=== PATIENT | female | born 1965 | race Caucasian/White ===

== ENCOUNTER 2020-05-08 09:15 | Emergency (ER) | payer OTHER ==
[2020-05-08] MEDS ORDERED: Acetaminophen 500 MG Tab PO ONE (09:57)
[2020-05-08] MEDS ORDERED: oxyCODONE 5 MG Tab PO ONE (09:57)
--- NOTE | 2020-05-08 09:59 | EDM.PDOC ---
ED HPI GENERAL MEDICAL PROBLEM - General Chief Complaint: General Stated Complaint: ARTHRITIS PAIN Time Seen by Provider: 05/08/20 09:57 Source of Information: Reports: Patient, Old Records History Limitations: Reports: No Limitations - History of Present Illness INITIAL COMMENTS - FREE TEXT/NARRATIVE: This is a very pleasant 54-year-old female with a past medical history of ost eoarthritis and lone atrial fibrillation not on anticoagulation presenting with hip pain and hand pain. She reports a 3-day history of pain to various small joints of her bilateral hands and her bilateral hips. She states that she has been diagnosed with osteoarthritis and that this pain seems to be a flare of her known OA. No new locations of pain today. Denies any redness or fever. No history of rheumatoid arthritis or any autoimmune disease. She is not on any steroids or immunosuppressant medications. No history of any new trauma. No history of prior joint replacements in the affected areas. Past medical history: Reviewed, no additional pertinent history. Surgical history: Reviewed in system, no additional pertinent history. Social history: Reviewed in system, no additional pertinent history. Family history: Reviewed in system, no additional pertinent history. PHYSICAL EXAM Vital signs reviewed. Nursing notes reviewed. Constitutional: Awake, alert, uncomfortable appearing. Head: Normocephalic, atraumatic. Eyes: EOMI, conjunctiva normal, no discharge, no scleral icterus. Ears, Nose, Throat: External ears and nose normal, moist oral mucosa. Cardiovascular: 2+ bilateral DP pulses, capillary refill less than 2 seconds. Bilateral lower extremities are warm and well-perfused. Pulmonary: normal work of breathing, no accessory muscle use. Abdomen/GI: Soft, nontender, nondistended, no guarding or rigidity, no masses. Musculoskeletal: No deformities. Various interphalangeal and metacarpal phalangeal joints of both hands are slightly tender but are not overtly erythematous or swollen to suggest septic arthritis. No joint effusions appreciated the bilateral hands and the fingers of both hands. Moderate pain with active and passive movement of both hip joints but there are no overlying skin changes such as erythema and there is no gross joint effusion to either hip. Integumentary: Appropriate color for ethnicity, warm, dry, no pallor or jaundice, no rash. Neurologic: Alert, answering questions appropriately, normal speech, no facial droop, moving all extremities well. Psychiatric: Appropriate mood and affect, normal thought process. general Pain Score (Numeric/FACES): 9 - Related Data Allergies Allergy/AdvReac Type Severity Reaction Status Date / Time cyclobenzaprine Allergy Seizure Verified 05/08/20 09:33 [From Flexeril] NSAIDS (Non-Steroidal Allergy Hives Verified 05/08/20 09:33 Anti-Inflamma prednisone Allergy Hives Verified 05/08/20 09:33 Home Meds: Home Meds Acetaminophen [Acetaminophen Extra Strength] 500 - 1,000 mg PO Q6H PRN #30 table t 05/08/20 [Rx] traMADol [Ultram] 50 mg PO Q4H PRN #15 tab 05/08/20 [Rx] Past Medical History HEENT History: Reports: Impaired Vision Respiratory History: Reports: Asthma Genitourinary History: Reports: Renal Calculus Musculoskeletal History: Reports: Arthritis Psychiatric History: Reports: Anxiety, PTSD - Infectious Disease History Infectious Disease History: Reports: Chicken Pox - Past Surgical History GI Surgical History: Reports: Appendectomy, Cholecystectomy, Hernia Repair/Other Female Surgical History: Reports: Hysterectomy Other Musculoskeletal Surgeries/Procedures:: discectomy Social & Family History - Tobacco Use Tobacco Use Status *Q: Current Every Day Tobacco User Years of Tobacco use: 15 Packs/Tins Daily: 0.7 - Recreational Drug Use Recreational Drug Use: No ED ROS GENERAL - Review of Systems Review Of Systems: See Below ED EXAM, GENERAL - Physical Exam Exam: See Below Course - Vital Signs Text/Narrative:: 54-year-old female presenting with acute worsening of her chronic arthritis of the hands and hips. No evidence of overlying erythema, induration, or warmth to suggest septic arthritis or an infectious process. No history of autoimmune disease. I believe that this is worsening of her chronic osteoarthritis. Given oxycodone and Tylenol for pain along with some some lidocaine patches. Given that pain is in her typical locations of her OA, I do not feel like need to repeat x-rays today. We will plan to discharge home with a short course of tramadol until she can get in with her primary doctor as it is currently the weekend. Recommended acetaminophen and [id number] lidocaine patches, heating pad, stretching, etc. 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 She voiced understanding and had no questions. Plan: Patient is stable to discharge home with outpatient primary care clinic follow-up. Strict emergency department return precautions were provided, patient indicated understanding. All questions were answered prior to departure. Discharged in good condition. Last Recorded V/S: Last Vital Signs Temp 36.3 C 05/08/20 10:30 Pulse 98 05/08/20 10:30 Resp 20 05/08/20 10:30 BP 146/56 H 05/08/20 10:30 Pulse Ox 97 05/08/20 10:30 - Orders/Labs/Meds Orders: Medication Orders Lidocaine (Lidoderm 5%) 700 mg TOP ONETIME ONE Stop: 05/08/20 10:34 Lidocaine (Lidoderm 5%) 700 mg TOP ONETIME ONE Stop: 05/08/20 10:34 Meds: Medications Generic Name Dose Route Start Last Admin Trade Name Freq PRN Reason Stop Dose Admin Lidocaine 700 mg 05/08/20 10:33 Lidoderm 5% TOP 05/08/20 10:34 ONETIME ONE Lidocaine 700 mg 05/08/20 10:33 Lidoderm 5% TOP 05/08/20 10:34 ONETIME ONE Discontinued Medications Generic Name Dose Route Start Last Admin Trade Name Freq PRN Reason Stop Dose Admin Acetaminophen 1,000 mg 05/08/20 09:57 05/08/20 10:31 Tylenol Extra Strength PO 05/08/20 09:58 1,000 mg ONETIME ONE Administration Oxycodone HCl 10 mg 05/08/20 09:57 05/08/20 10:31 Oxycodone PO 05/08/20 09:58 10 mg ONETIME ONE Administration Departure - Departure Time of Disposition: 10:36 Disposition: Home, Self-Care 01 Condition: Good Clinical Impression: Osteoarthritis, hip, bilateral Qualifiers: Osteoarthritis type: unspecified Qualified Code(s): M16.0 - Bilateral primary osteoarthritis of hip Osteoarthritis of both hands Qualifiers: Osteoarthritis type: unspecified Qualified Code(s): M19.041 - Primary osteoarthritis, right hand; M19.042 - Primary osteoarthritis, left hand - Discharge Information *PRESCRIPTION DRUG MONITORING PROGRAM REVIEWED*: Yes *COPY OF PRESCRIPTION DRUG MONITORING REPORT IN PATIENT DAVONTE: Not Applicable Instructions: Osteoarthritis, What You Need to Know About Osteoarthritis Referrals: Josemanuel Camarillo MD [Primary Care Provider] - 3 Days (For follow-up care of osteoarthritis.) Forms: ED Department Discharge Additional Instructions: It seems that the pain you are having today is due to worsening of your known osteoarthritis. I do not see any signs of infection or any new conditions today. We are going to prescribe a short course of tramadol until you can get into see your doctor next week. You can also take [id number] extra strength Tylenol and lidocaine patches and try heating pad and stretching. Please return the emergency department immediately if your symptoms worsen or if you feel worse. Thank you for choosing the [facility] emergency department in [place] for your medical needs today. It was a pleasure caring for you. The following information is given to patients seen in the emergency department who are being discharged. This information is to outline your options for follow-up care. We provide all patients seen in our emergency department with a follow-up referral. The need for follow-up, as well as the timing and circumstances, are variable depending upon the specifics of your emergency department visit. If you don't have a primary care physician on staff, we will provide you with a referral. We always advise you to contact your personal physician following an emergency department visit to inform them of the circumstance of the visit and for follow-up with them and/or the need for any referrals to a consulting specialist. The emergency department will also refer you to a specialist when appropriate. This referral assures that you have the opportunity for follow-up care with a sp ecialist. All of these measure are taken in an effort to provide you with optimal care, which includes your follow-up. Under all circumstances we always encourage you to contact your private physicia n who remains a resource for coordinating your care. When calling for follow-up care, please make the office aware that this follow-up is from your recent emergency room visit. If for any reason you are refused follow-up, please contact the [facility] Emergency Department at and asked to speak to the emergency department charge nurse. If you do not have a primary care physician that is caring for you, you can contact these clinics below to set up an appointment to establish care: [facility] - Primary Care [address], [place] [address] [facility] [address] [place] [id number] Sepsis Event Note (ED) - Evaluation Sepsis Screening Result: No Definite Risk - Focused Exam Vital Signs: Vital Signs Temp Pulse Resp BP Pulse Ox 05/08/20 10:30 36.3 C 98 20 146/56 H 97 05/08/20 09:29 36.2 C 97 17 143/65 H 95
[2020-05-08] MEDS ORDERED: Lidocaine 5% 700 MG Patch TOP ONE ×2 (10:33)
== END 2020-05-08 10:59 | disposition home or self-care (01) ==
LOC: MW.ED 09:15
DX: M16.0 Bilateral primary osteoarthritis of hip (principal); M19.042 Primary osteoarthritis, left hand; M19.041 Primary osteoarthritis, right hand; J45.909 Unspecified asthma, uncomplicated; I48.91 Unspecified atrial fibrillation; F17.210 Nicotine dependence, cigarettes, uncomplicated; Z88.8 Allergy status to other drugs, medicaments and biological substances; Z90.49 Acquired absence of other specified parts of digestive tract; Z90.710 Acquired absence of both cervix and uterus
CPT/HCPCS: 99283; A9270

== ENCOUNTER 2020-12-12 12:20 | Emergency (ER) | payer OTHER ==
--- NOTE | 2020-12-12 12:29 | EDM.PDOC ---
ED HPI GENERAL MEDICAL PROBLEM - General Chief Complaint: Back Pain or Injury Stated Complaint: BOTH LEGS PAINFUL AND NUMB Time Seen by Provider: 12/12/20 12:20 Source of Information: Reports: Patient History Limitations: Reports: No Limitations - History of Present Illness INITIAL COMMENTS - FREE TEXT/NARRATIVE: 54-year-old female past medical history chronic back pain status post discectomy status post neurostimulator placed and subsequently removed presents for low back pain. Patient states that she has chronic back pain and is typically able to get by with tramadol and Tylenol. She notes that she has been doing a lot of yard work over the weekend and that her back pain is not relieved with tramadol and Tylenol. Feels like her typical back pain but worse. Is in bilateral lower back radiating down bilateral lower legs left greater than right. She describes a shooting pain that is worse with movement. She does note some numbness and tingling primarily on the left side which is been there for years. She denies bowel or bladder incontinence, no dysuria or hematuria. No groin anesthesia. No muscle weakness. lower back Pain Score (Numeric/FACES): 8 - Related Data Allergies Allergy/AdvReac Type Severity Reaction Status Date / Time cyclobenzaprine Allergy Seizure Verified 12/12/20 12:31 [From Flexeril] NSAIDS (Non-Steroidal Allergy Hives Verified 12/12/20 12:31 Anti-Inflamma prednisone Allergy Hives Verified 12/12/20 12:31 Home Meds: Home Meds Acetaminophen [Acetaminophen Extra Strength] 500 - 1,000 mg PO Q6H PRN #30 tablet 05/08/20 [Rx] traMADol [Ultram] 50 mg PO Q4H PRN #15 tab 05/08/20 [Rx] LORazepam [Ativan] 0.5 mg PO BID PRN 12/12/20 [History] Past Medical History HEENT History: Reports: Impaired Vision Respiratory History: Reports: Asthma Genitourinary History: Reports: Renal Calculus Musculoskeletal History: Reports: Arthritis Psychiatric History: Reports: Anxiety, PTSD - Infectious Disease History Infectious Disease History: Reports: Chicken Pox - Past Surgical History GI Surgical History: Reports: Appendectomy, Cholecystectomy, Hernia Repair/Other Female Surgical History: Reports: Hysterectomy Other Musculoskeletal Surgeries/Procedures:: discectomy ED ROS GENERAL - Review of Systems Review Of Systems: Comprehensive ROS is negative, except as noted in HPI. ED EXAM, GENERAL - Physical Exam Exam: See Below Exam Limited By: No Limitations General Appearance: Alert, WD/WN, No Apparent Distress Head: Atraumatic, Normocephalic Neck: Normal Inspection Respiratory/Chest: No Respiratory Distress, Lungs Clear, Normal Breath Sounds, No Accessory Muscle Use Cardiovascular: Normal Peripheral Pulses, Regular Rate, Rhythm GI/Abdominal: Soft, Non-Tender Extremities: Normal Inspection Neurological: Alert Psychiatric: Normal Affect, Normal Mood Skin Exam: Warm, Dry, Intact, Normal Color Course - Vital Signs Last Recorded V/S: Last Vital Signs Temp 98 F 12/12/20 12:32 Pulse 106 H 12/12/20 12:32 Resp BP 152/96 H 12/12/20 12:32 Pulse Ox 98 12/12/20 12:32 - Orders/Labs/Meds Meds: Medications Discontinued Medications Generic Name Dose Route Start Last Admin Trade Name Shyanne PRN Reason Stop Dose Admin Diazepam 2 mg 12/12/20 12:43 12/12/20 12:54 Diazepam 2 Mg Tab PO 12/12/20 12:44 2 mg ONETIME ONE Administration Oxycodone/Acetaminophen 1 tab 12/12/20 12:43 12/12/20 12:54 Acetaminophen/Oxycodone 325-10 Mg Tab PO 12/12/20 12:44 1 tab ONETIME ONE Administration - Re-Assessments/Exams Free Text/Narrative Re-Assessment/Exam: 12/12/20 12:45 Patient's pain likely secondary to chronic back pain. I explained with patient that she will likely need an MRI to see if anything is changed since her prior MRI which was years ago. I explained that we do not readily have MRI available in the emergency department but suggested that she follow-up with her primary care physician tomorrow or Sunday and set up an appointment for MRI. She states that she would be able to get this done. I will suspicion for cauda equina or clinically significant cause of low back pain given the chronicity and typical presentation of her symptoms. Will treat symptomatically with Percocet, Valium. Will follow up reassessment for disposition. 12/12/20 13:34 Patient is feeling much better. Will discharge with analgesia and follow-up with primary care physician early next week. Return precautions for red flag back pain symptoms were discussed at length. Patient understands. Departure - Departure Time of Disposition: 13:35 Disposition: Home, Self-Care 01 Condition: Good Clinical Impression: Back pain Qualifiers: Back pain location: low back pain Chronicity: chronic Back pain laterality: bilateral Sciatica presence: with sciatica Sciatica laterality: bilateral sciatica Qualified Code(s): M54.42 - Lumbago with sciatica, left side; M54.41 - Lumbago with sciatica, right side; G89.29 - Other chronic pain - Discharge Information Instructions: Chronic Back Pain, [id number] Referrals: Josemanuel Camarillo MD [Primary Care Provider] - Forms: ED Department Discharge Additional Instructions: The following information is given to patients seen in the emergency department who are being discharged to home. This information is to outline your options for follow-up care. We provide all patients seen in our emergency department with a follow-up referral. The need for follow-up, as well as the timing and circumstances, are variable depending upon the specifics of your emergency department visit. If you don't have a primary care physician on staff, we will provide you with a referral. We always advise you to contact your personal physician following an emergency department visit to inform them of the circumstance of the visit and for follow-up with them and/or the need for any referrals to a consulting specialist. The emergency department will also refer you to a specialist when appropriate. This referral assures that you have the opportunity for follow-up care with a specialist. All of these measure are taken in an effort to provide you with optimal care, which includes your follow-up. Under all circumstances we always encourage you to contact your private physician who remains a resource for coordinating your care. When calling for follow-up care, please make the office aware that this follow-up is from your recent emergency room visit. If for any reason you are refused follow-up, please contact the [facility] Emergency Department at and asked to speak to the emergency department charge nurse. Please follow up with your primary care physician. If you do not have a primary care physician, see below: [facility] [address] [place] [id number] [facility] [address] [place] [id number] [facility] [address], [place] [address] Sepsis Event Note (ED) - Focused Exam Vital Signs: Vital Signs Temp Pulse BP Pulse Ox 12/12/20 12:32 98 F 106 H 152/96 H 98
[2020-12-12] MEDS ORDERED: Acetaminophen/oxyCODONE 325-10 MG Tab PO ONE (12:43)
[2020-12-12] MEDS ORDERED: Diazepam 2 MG Tab PO ONE (12:43)
== END 2020-12-12 13:58 | disposition home or self-care (01) ==
LOC: MW.ED 12:20
DX: M54.41 Lumbago with sciatica, right side (principal); M54.42 Lumbago with sciatica, left side; Z88.8 Allergy status to other drugs, medicaments and biological substances
CPT/HCPCS: 99283; A9270